=== PATIENT | male | born 1965 | race Caucasian/White ===

== ENCOUNTER → 2023-09-02 | Outpatient (CLI) | payer BC ==
[~2023-09-02] MED LIST: FLONASE NASAL S16 GM NS; LIPITOR 40MG TA40 MG PO; PRINZIDE 25 MG-1 TAB PO; PROVENTIL0.09 MG/A1 IH; SINGULAIR 110 MG/TAB PO
== END ==
LOC: COL.RAD 10:17
DX: M16.0 Bilateral primary osteoarthritis of hip (principal)